=== PATIENT | male | born 1955 | race Caucasian/White ===

== ENCOUNTER 2019-10-14 10:58 | Emergency (ER) | payer OTHER ==
[~2019-10-14] VITALS: Ht 172.7 cm; Wt 98.4 kg
[2019-10-14 11:35] VITALS: Ht 172.7 cm; Wt 98.4 kg
[2019-10-14 13:45] VITALS: BP 125/74
== END 2019-10-14 13:45 | disposition home or self-care (01) ==
LOC: ED 10:58
DX: H61.21 Impacted cerumen, right ear (principal)